=== PATIENT | female | born 1955 | race Caucasian/White ===

== ENCOUNTER 2017-11-08 17:18 | Emergency (ER) | payer MEDICAID ==
[~2017-11-08] VITALS: Ht 172.7 cm; Wt 106.6 kg
[~2017-11-08 17:18] MED LIST: ALBU90OI INH; ASPI325EC PO; BENZ100A PO; CONEST1.25; DOXY100 PO; HYDGUAL120 PO; HYDR1TAB94 PO; Norco 5-325 Ta1 EACH PO; ONDA4ODT MM; PROM25 PO; Zofran Odt4 MG SL
[2017-11-08] MEDS ORDERED: Amoxicillin500 MG PO (18:30)
== END 2017-11-08 18:40 | disposition home or self-care (01) ==
LOC: ER 17:18
DX: K04.7 Periapical abscess without sinus (principal); Z88.5 Allergy status to narcotic agent; Z79.82 Long term (current) use of aspirin; Z87.891 Personal history of nicotine dependence
CPT/HCPCS: 99282

== ENCOUNTER → 2019-12-20 | Outpatient (CLI) | payer OTHER ==
[~2019-12-20] MED LIST changes: +Amoxicillin500 MG PO
== END | disposition home or self-care (01) ==
LOC: LAB 19:08 → LAB SHORT 19:08
DX: N30.90 Cystitis, unspecified without hematuria (principal)
CPT/HCPCS: 87077; 87086; 87186

== ENCOUNTER 2022-07-28 08:48 | Day surgery (SDC) | payer OTHER ==
[~2022-07-28] VITALS: Ht 165.1 cm; Wt 98.5 kg
[2022-07-28] VITALS (11 sets, daily range): BP systolic 94–141; BP diastolic 55–73
[~2022-07-28 08:48] MED LIST changes: +AMOCLA875 PO; +Clindamycin HC300 MG PO; +IBU800 MG PO; +TRAM50 PO
--- NOTE | 2022-07-28 11:12 | NUR ---
07/28/22 1112 Cherry Dominique UPON ARRIVAL TO THE OR, SPINAL EPIDURAL COMPLETED BY DR. MADDOX
[2022-07-28] MEDS ORDERED: IBUP200 PO (15:24)
--- NOTE | 2022-07-28 18:45 | NUR ---
SHIFT SUMMARY NEW ADMIT TO UNIT POD [address] ONEIL. ALERT AND ORIENTED. POST OP VSS. TOLERATING REGULAR DIET AND PO LIQUIDS. SALINE LOCKED. SBA UP TO BATHROOM, THEN TO RECLINER. WORKED WITH PT. R HIP INCISION C/D/I WITH PRINEO IN PLACE. PAIN MANAGED WITH SCHEDULED MEDS AND ICE PACK. FAMILY MEMBERS TO VISIT BEDSIDE DURING AFTERNOON. VOIDING WELL.
[2022-07-29 00:51] VITALS: BP 124/63
[2022-07-29 05:18] VITALS: BP 143/69
[2022-07-29 05:47] LABS: BASOPHILS ABSOLUTE AUTO 0.03 K/mm3 (0.00-0.23); BASOPHILS PERCENT AUTO 0 % (0-2); EOSINOPHILS ABSOLUTE AUTO 0.01 K/mm3 (0.00-0.68); EOSINOPHILS PERCENT AUTO 0 % (0-6); Hematocrit 34.5 % (33.0-51.0); Hemoglobin 11.4 g/dL (11.5-16.0); IMMATURE GRAN ABSOLUTE AUTO 0.08 K/mm3 (0.00-0.10); IMMATURE GRAN PERCENT AUTO 1 % (0-1); LYMPHOCYTES ABSOLUTE AUTO 1.68 K/mm3 (0.84-5.20); LYMPHOCYTES PERCENT AUTO 11 % (21-46); MONOCYTES ABSOLUTE AUTO 1.15 K/mm3 (0.16-1.47); MONOCYTES PERCENT AUTO 8 % (4-13); Mean Corpuscular HGB 30.3 pg (26.0-34.0); Mean Corpuscular Volume 92 fL (80-100); Mean Platelet Volume 10.4 fL (9.1-12.4); NEUTROPHILS PERCENT AUTO 80 % (41-73); Platelet Count 207 K/mm3 (150-400); RDW Coefficient Variation 13.2 % (11.7-14.2); RDW Standard Deviation 44.5 fL (35.1-46.3); Red Blood Cell Count 3.76 M/mm3 (3.80-5.20); White Blood Cell Count 14.85 K/mm3 (4.00-11.30)
[2022-07-29 06:19] LABS: Bun/Creatinine Ratio 18.1 (12.0-20.0); Calcium, Blood 9.3 mg/dL (8.5-10.1); Creatinine, Blood 0.94 mg/dL (0.40-1.00); Potassium, Blood 4.4 mmol/L (3.5-5.5)
[2022-07-29 07:26] VITALS: BP 123/63
[2022-07-29] MEDS ORDERED: ACET500 PO (09:14)
[2022-07-29] MEDS ORDERED: Aspir 8181 MG PO (09:15)
[2022-07-29] MEDS ORDERED: OXYC5 PO (09:16)
--- NOTE | 2022-07-29 10:30 | NUR ---
DISCHARGE SUMMARY PT A&OX4, ROBEL PO, VOIDING, AMB SBA FWW GB, PAIN MANAGED. LEFT FLOOR VIA WC WITH PRODUCTION HELPER TO GO HOME WITH FRIEND, WITH ALL PERSONAL POSSESSIONS INCLUDING DC PACKET. DC INS PROVIDED. PT REP UNDERSTANDING THOSE INSTRUCTIONS. IV DC'D.
== END 2022-07-29 10:29 | disposition home or self-care (01) ==
LOC: ORSCMMR 08:48 → ORD 10:45 → ORSCMMR 10:45 → SURS 13:30 → ORSCMMR 07-29 10:29
PROVIDERS: Orthopaedic Surgery
PROC: 0SR90JA Replacement of Right Hip Joint with Synthetic Substitute, Uncemented, Open Approach (ICD-10-PCS; principal; 2022-07-28 10:45)
DX: M16.11 Unilateral primary osteoarthritis, right hip (principal); K21.9 Gastro-esophageal reflux disease without esophagitis
CPT/HCPCS: 36415; 72170; 80048; 83735; 85025; 97110; 97116; 97162; A9270; C1776; J0171; J0690; J0735; J1100; J1885; J2250; J2370; J2405; J2704; J2795; J3010; J7120

== ENCOUNTER → 2022-08-07 | Outpatient (CLI) | payer OTHER ==
[~2022-08-07] MED LIST changes: +ACET500 PO; +Aspir 8181 MG PO; +IBUP200 PO; +OXYC5 PO
== END | disposition home or self-care (01) ==
LOC: LAB 15:49 → PLD 15:49 → LAB SHORT 15:49
DX: C44.519 Basal cell carcinoma of skin of other part of trunk (principal)
CPT/HCPCS: 88305

== ENCOUNTER → 2022-08-19 | Outpatient (CLI) | payer OTHER | END | disposition home or self-care (01) | LOC: LAB 13:08 → LAB SHORT 13:08 | DX: L03.313 Cellulitis of chest wall (principal) | CPT/HCPCS: 87070; 87075; 87077; 87147; 87186; 87205 ==

== ENCOUNTER → 2022-09-30 | Outpatient (CLI) | payer OTHER | LOC: LAB SHORT 14:53 → PLD 14:53 → LAB 14:53 | DX: C44.519 Basal cell carcinoma of skin of other part of trunk (principal); L90.5 Scar conditions and fibrosis of skin | CPT/HCPCS: 88305 ==